=== PATIENT | female | born 1970 | race Caucasian/White ===

== ENCOUNTER → 2022-07-03 | Outpatient (CLI) | payer BC | END | disposition home or self-care (01) | LOC: RAH 07:45 | PROVIDERS: ATTEND Internal Medicine | DX: E04.9 Nontoxic goiter, unspecified (principal); R59.9 Enlarged lymph nodes, unspecified | CPT/HCPCS: 76536 ==

== ENCOUNTER 2024-08-30 10:14 | Emergency (ER) | payer BC ==
[~2024-08-30] VITALS: Ht 170.2 cm; Wt 74.8 kg
[2024-08-30 11:00] LABS: APPEARANCE,URINE CLOUDY (CLEAR); BILIRUBIN,URINE NEGATIVE (NEGATIVE); COLOR,URINE YELLOW (YELLOW); GLUCOSE, URINE (UA) NEGATIVE (NEGATIVE); KETONES,URINE NEGATIVE (NEGATIVE); LEUKOCYTE ESTERASE ,URINE NEGATIVE Leu/uL (NEGATIVE); NITRATE,URINE NEGATIVE (NEGATIVE); OCCULT BLOOD,URINE NEGATIVE (NEGATIVE); PH,URINE 7.5 (5.0-8.0); PROTEIN,URINE NEGATIVE (NEGATIVE); UROBILINOGEN,URINE 0.2 mg/dL (0.2-1.0)
--- NOTE | 2024-08-30 11:02 | ERN ---
ED Note History of Present Illness Stated Complaint: PELVIC CRAMPING, DYSURIA Chief Complaint: Pelvic Pain Time Seen by MD: 10:35 Dictation: This 54-year-old female with a history of previous UTI on an back pain presents with some bilateral pelvic cramping for about one week. Pain may lateralized is a little more to the right than the left. Discomfort does radiate to the back and there is a sense of heaviness when she needs to urinate but no sam dysuria, no hematuria, no vaginal discharge, and no change in her usually normal bowel habits. She denies associated fever or chills in his not had nausea or vomiting. She was able to eat well and had a taco before coming in this morning. She has not taken any medication for pain at home. She did have rectovesicular wall repair for a week area but no history of rupture in 2019. She has cervical and lumbar spine problems chronically but does not take any routine medications. PCP is Dr. Chisholm. Patient drinks wine but does not smoke or use recreational drugs. She lives at home with family Allergies: Coded Allergies: No Known Drug Allergies (Unverified Allergy, Unknown, 08/30/24) Past Medical History Past Medical History: UTI, Other Additional Past Medical Hx: SPINAL Surgical History: Other RN Note Reviewed/Agreed w/PFSH: Yes Review of System Dictation All pertinent systems reviewed, negative except as documented in the HPI The ROS is obtained from patient GENERAL/CONSTITUTIONAL: Negative except as documented in HPI. ENT: Negative except as documented in HPI. CARDIOVASCULAR: Negative except as documented in HPI. RESPIRATORY: Negative except as documented in HPI. GASTROINTESTINAL: Negative except as documented in HPI. GENITOURINARY: Negative except as documented in HPI. MUSCULOSKELETAL: Negative except as documented in HPI. SKIN: Negative except as documented in HPI. NEUROLOGIC: Negative except as documented in HPI. Initial Vital Sign VS Vital Signs Date Time Temp Pulse Resp B/P (MAP) Pulse Ox O2 Delivery O2 Flow Rate FiO2 08/30/24 10:15 98.2 100 18 126/76 100 Room Air 0 08/30/24 10:29 21 Physical Exam Dictation VITAL SIGNS: note is made of triage vital signs CONSTITUTIONAL: This is a comfortable patient who is awake, alert, and appropriately interactive. She is moving freely on the gurney HEAD: Normocephalic, Atraumatic. EYES: Periorbital areas with no swelling, redness, or edema. Lids and lashes are normal. Conjunctival injection is absent. Sclera anicteric. Pupils equal, round, reactive to light. ENT: No nasal discharge noted. Posterior pharynx is without exudate, redness, swelling, masses, or evidence of obstruction. Uvula midline. Mucous membranes moist. NECK: Trachea midline, no masses palpated, and no cervical lymphadenopathy. No swelling. Supple, full range of motion without nuchal rigidity. No vertebral point tenderness. No meningismus. CHEST/AXILLA: Normal chest wall appearance and motion. No tenderness. No crepitus. CV: Normal rate, regular rhythm. No murmur. No edema. RESPIRATORY:Respiratory rate is normal. Bilateral equal breath sounds with good airflow. Normal breath sounds are noted. No rales, rhonchi or wheezes noted. No increased work of breathing, no retractions. ABDOMEN: Inspection normal. No distention is appreciated. Bowel sounds are normal. No mass or organomegaly is appreciated. There is very mild discomfort on palpation of the lower abdomen without sam tenderness. She does not lateralized to the right on exam. No rebound. No rigidity. No voluntary or involuntary guarding. BACK: Inspection is normal. No midline tenderness is appreciated. The patient appears comfortable when moving. : No CVA tenderness or bladder tenderness. SKIN: Warm, dry, with normal turgor. Capillary refill less than 3 seconds. Normal color.No rash. No cellulitis or abscess. No evidence of acute injury. MS/Extremity: There is no calf tenderness. Baseline range of motion is noted in all 4 extremities. There are no deformities. NEURO: Awake and alert, lucid. Facies symmetric and speech is clear. Motor strength 5/5 in all extremities. Sensory grossly intact. PSYCH: Patient is appropriately attentive and cooperative without evidence of hallucination. Results (Laboratory/Radiology) Laboratory/Radiology Laboratory Tests Test 08/30/24 10:19 08/30/24 12:43 Urine Color YELLOW (YELLOW) Urine Appearance CLOUDY (CLEAR) H Urine pH 7.5 (5.0-8.0) Urine Specific [place] 1.012 (1.001-1.031) Urine Protein NEGATIVE mg/dL (NEGATIVE) Urine Glucose (UA) NEGATIVE mg/dL (NEGATIVE) Urine Ketones NEGATIVE mg/dL (NEGATIVE) Urine Occult Blood NEGATIVE (NEGATIVE) Urine Nitrate NEGATIVE (NEGATIVE) Urine Bilirubin NEGATIVE mg/dL (NEGATIVE) Urine Urobilinogen 0.2 mg/dL (0.2-1.0) Urine Leukocyte Esterase NEGATIVE Devi/uL Urine RBC 2-5 /HPF (0-1) H Urine WBC 0-1 /HPF (0-1) Urine Squamous Epithelial Cells RARE /HPF (0-2) Urine Bacteria RARE /HPF (None Seen) White Blood Count 16.4 K/uL (4.8-10.8) H Red Blood Count 4.44 MIL/uL (4.00-5.50) Hemoglobin 13.7 g/dL (12.0-16.0) Hematocrit 41.8 % (36-48) Mean Corpuscular Volume 94.1 fL (79-99) Mean Corpuscular Hemoglobin 30.9 pg (27.0-33.0) Mean Corpuscular Hemoglobin Concent 32.8 g/dL (32.0-36.0) Red Cell Distribution Width 13.1 % (11.0-15.5) Platelet Count 297 K/uL (130-400) Mean Platelet Volume 10.3 fL (7.5-10.5) Immature Granulocyte % (Auto) 0.4 % (0-1) Neutrophils (%) (Auto) 75.4 % (40.0-77.0) Lymphocytes (%) (Auto) 14.4 % (21.0-51.0) L Monocytes (%) (Auto) 8.2 % (3.0-13.0) Eosinophils (%) (Auto) 1.1 % (0.0-8.0) Basophils (%) (Auto) 0.5 % (0.0-5.0) Neutrophils # (Auto) 12.4 K/uL (1.8-7.7) H Lymphocytes # (Auto) 2.4 K/uL (1.0-4.8) Monocytes # (Auto) 1.3 K/uL (0.1-1.0) H Eosinophils # (Auto) 0.18 K/uL (0.00-0.70) Basophils # (Auto) 0.08 K/uL (0.00-0.20) Absolute Immature Granulocyte (auto 0.07 K/uL (0-1) Nucleated Red Blood Cells 0.0 % (0.0-0.19) Sodium Level 139 mmol/L (136-145) Potassium Level 3.9 mmol/L (3.5-5.1) Chloride Level 103 mmol/L (101-111) Carbon Dioxide Level 31 mmol/L (21-32) Blood Urea Nitrogen 11 mg/dL (7-18) Creatinine 0.7 mg/dL (0.5-1.0) Glomerular Filtration Rate Calc 101 mL/min (>90) Random Glucose 98 mg/dL (70-105) Total Calcium 8.8 mg/dL (8.5-10.1) CT Scan Comment: There is inflammation along the sigmoid colon with wall thickening and stranding but no well-defined diverticular pocket. I discussed the findings with Dr. Colon by phone. ED Course ED Course Orders Procedure Category Date Status Time Urinalysis Profile LAB 08/30/24 Complete 10:17 Cbc With Differential LAB 08/30/24 Complete 12:24 Ct Abdomen/Pelvis CT 08/30/24 Resulted W/Contrast 12:24 Basic Metabolic Panel LAB 08/30/24 Complete 12:24 Iohexol (Omnipaque) PHA 08/30/24 Complete 13:00 Levofloxacin 500 PHA 08/30/24 In Process Mg/D5w 100 Ml 15:00 Current Medications Medications (Trade) Dose Ordered Sig/Marcello Route PRN Reason Start Time Stop Time Status Last Admin Dose Admin Iohexol (Omnipaque) 75 ml STK-MED ONCE IV 08/30/24 13:00 08/30/24 13:00 DC Levofloxacin/ Dextrose 100 ml @ 100 mls/hr Q24H IV 08/30/24 15:00 09/09/24 14:59 08/30/24 14:45 Vital Signs Date Time Temp Pulse Resp B/P (MAP) Pulse Ox O2 Delivery O2 Flow Rate FiO2 08/30/24 10:29 98.2 87 16 123/82 98 Room Air* 0 21 08/30/24 10:15 98.2 100 18 126/76 100 Room Air 0 Medical Decision Making MDM INITIAL IMPRESSION Initial history and physical concerning for possible UTI. Clinical exam does not suggest appendicitis or a significant inflammatory process such as diverticulitis. There were no vaginal complaints to suggest a disorder of the reproductive sy stem. The pain has not been severe enough to warrant home therapy with [id number] medications Contributing medical problems: Chronic back pain I have reviewed the triage nursing notes and vital signs. The patient is afebrile with acceptable oxygen saturation, heart rate and blood pressure. Initial plan: Urinalysis initially DATA REVIEW I have reviewed additional NN, repeat VS, and monitoring where indicated. Heart rate, blood pressure, and O2 saturation are acceptable. Long diagnostic results: Urinalysis was unremarkable in the abdomen remained benign. [place] [id number] scan is positive for inflammation along the sigmoid colon with sigmoid colonic wall thickening colitis versus diverticulitis. No evidence of abscess Other independent historian: none Review of external data: None. ED COURSE Interventions: Patient received Levaquin in the emergency department Reassessment: She has been stable without significant tenderness. DISPOSITION Final diagnostic impression: Acute inflammatory colitis versus diverticulitis I discussed my findings, clinical impression and treatment recommendations with the patient. I have reviewed the social factors contributing to the patient's presentation and disposition planning. She has a PCP easily available and is able to tolerate p.o. antibiotics. My final plan for disposition was made based upon clinical findings, response to treatment and discussion with the patient regarding management options. I did speak with the radiologist regarding the patient's CT report Hospitalization is not indicated due to low risk of short term progression, complication, morbidity or mortality related to the current diagnosis At the time of discharge, the vital signs are within acceptable limits. Repeat examination: No significant new changes. Patient has been able to take oral liquids. The discharge treatment plan includes oral antibiotics and close follow up. Incidental findings discussed: CT findings were discussed in detail. Questions were invited and answered in layman's terms. I have emphasized my follow-up recommendations and reviewed ED return precautions. I have answered any questions in layman's terms. The patient understands that they will have to arrange for out-patient follow-up for recheck of today's condition. The patient is stable and appropriate for discharge from the ED. This dictation was prepared using [employer] voice recognition software. Occasional voice recognition errors may occur. When identified, these errors have been corrected. While every attempt is made to correct errors during dictation, errors may still exist. DX & DISP Disposition: Discharge Decision to Admit Date: Aug 30, 2024 Decision to Admit Time: 15:25 Departure Impression: Primary Impression: Acute colitis Condition: Stable Scripts Metronidazole (Metronidazole) 500 Mg Tablet 1 TAB PO TID for 10 Days, #30 TAB 0 Refills Prov: DANDY WILKINSON MD 08/30/24 Levofloxacin (Levofloxacin) 500 Mg Tablet 1 TAB PO DAILY for 10 Days, #10 TAB 0 Refills Prov: DANDY WILKINSON MD 08/30/24 Additional Instructions: Your CT scan shows a lot of inflammation in the area of the sigmoid colon. Problem may be related to a colitis or diverticulitis. Was no evidence of perforation or abscess. Do not mix metronidazole with alcohol. Plenty of fluids. Take the results with the and follow up with Dr. Chisholm in 2- 3 days. Take the antibiotics 2 times a day until they are gone. Return to the emergency department for fever, vomiting, worsening abdominal pain, passing blood or other worsening. Referrals: OZZIE CHISHOLM MD (PCP) Time of Disposition: 15:30 DANDY WILKINSON MD Aug 30, 2024 11:02
[2024-08-30 11:09] LABS: ADD UA MICROSCOPIC YES
[2024-08-30 11:10] LABS: BACTERIA,URINE RARE /HPF (None Seen); SQUAMOUS EPITHELIAL CELL,UR RARE /HPF (0-2); WBC,URINE 0-1 /HPF (0-1)
--- NOTE | 2024-08-30 12:46 | NUR ---
PENDING GFR RESULTS, IV SITE, & CONSENT FOR CT EXAM.
[2024-08-30 12:54] LABS: BASOPHILS # (AUTO) 0.08 K/uL (0.00-0.20); BASOPHILS % (AUTO) 0.5 % (0.0-5.0); EOSINOPHILS # (AUTO) 0.18 K/uL (0.00-0.70); EOSINOPHILS % (AUTO) 1.1 % (0.0-8.0); HEMATOCRIT 41.8 % (36-48); IMMATURE GRANULOCYTE ABSOLUTE 0.07 K/uL (0-1); LYMPHOCYTES # (AUTO) 2.4 K/uL (1.0-4.8); LYMPHOCYTES % (AUTO) 14.4 % (21.0-51.0); MEAN CORPUSCULAR HEMOGLOBIN 30.9 pg (27.0-33.0); MEAN CORPUSCULAR HGB CONC 32.8 g/dL (32.0-36.0); MEAN CORPUSCULAR VOLUME 94.1 fL (79-99); MONOCYTES # (AUTO) 1.3 K/uL (0.1-1.0); MONOCYTES % (AUTO) 8.2 % (3.0-13.0); NEUTROPHILS # (AUTO) 12.4 K/uL (1.8-7.7); NEUTROPHILS % (AUTO) 75.4 % (40.0-77.0); PLATELET COUNT (AUTO) 297 K/uL (130-400); RED BLOOD CELL COUNT(AUTO) 4.44 MIL/uL (4.00-5.50); RED CELL DISTRIBUTION WIDTH 13.1 % (11.0-15.5); WHITE BLOOD COUNT (AUTO) 16.4 K/uL (4.8-10.8)
[2024-08-30] MEDS ORDERED: IOHEXOL-350 75 ML VIAL IV ONE (13:00)
[2024-08-30 13:07] LABS: CREATININE 0.7 mg/dL (0.5-1.0); POTASSIUM 3.9 mmol/L (3.5-5.1)
--- NOTE | 2024-08-30 14:14 | HMCIMG ---
CT ABDOMEN/PELVIS W/CONTRAST HISTORY: Abdominal pain COMPARISON: None TECHNIQUE: Multiple sequential axial images of the abdomen and pelvis were obtained from the dome of the diaphragm through symphysis pubis. Patient was given 75 cc of Omnipaque through intravenous route. Oral contrast was not given. FINDINGS: No pleural effusion is seen bilaterally. There is no evidence of parenchymal disease or pulmonary nodule of the visualized lower lungs. Degenerative changes of the thoracolumbar spine are present. The heart is not enlarged. Liver measured 20 cm. The liver, spleen, adrenal glands and pancreas are unremarkable. There is no evidence of hydronephrosis bilaterally. No evidence of renal stone is seen. There are bilateral extrarenal pelvis. Fecal material is seen in the colon. There are normal size retroperitoneal and mesenteric lymph nodes. No ascites is seen. No CT evidence of acute appendicitis is seen. Nonspecific bowel sigmoid colon wall thickening is seen may be related to enterocolitis. There are fluid-filled small bowel loops and colon. Pelvic sidewalls are symmetric bilaterally. Bladder is well distended without wall thickening. IMPRESSION: 1. Fecal material in the colon. Nonspecific sigmoid colon wall thickening. CT was performed with one or more following dose reduction techniques: automated exposure control, adjustment of the mA and kv according to patient's size, or use of a iterative reconstruction technique.
[2024-08-30] MEDS: levoFLOXacin 500 MG/D5W 100 ML 100 ML IV SCH (14:45)
[2024-08-30] MEDS ORDERED: METR-172 PO (15:28)
[2024-08-30] MEDS ORDERED: LEVO-70 PO (15:28)
[2024-08-30 15:46] VITALS: BP 102/74; PULSE 74; RESP 16; TEMP 98.3; O2SAT 98
== END 2024-08-30 15:56 | disposition home or self-care (01) ==
LOC: EDH 10:14
DX: K52.9 Noninfective gastroenteritis and colitis, unspecified (principal); Z98.890 Other specified postprocedural states
CPT/HCPCS: 99284; 74177; 96374; 80048; 85025; 81001; 36415; J1956; Q9967